=== PATIENT | female | born 1965 | race Caucasian/White ===

== ENCOUNTER 2018-06-23 18:37 | Emergency (ER) | payer MEDICAID ==
[~2018-06-23] VITALS: Ht 180.3 cm; Wt 68.0 kg
[2018-06-23 18:50] VITALS: BP 145/74
[2018-06-23] MEDS ORDERED: CEFTRIAXONE 500 MG VIAL IM ONE (19:00)
[2018-06-23] MEDS ORDERED: AZITHROMYCIN 250 MG TABLET PO ONE (19:00)
[2018-06-23] MEDS ORDERED: LIDOCAINE /MPF 1% VIAL 5 ML VIAL ONE (19:10)
[2018-06-23] MEDS ORDERED: CEFTRIAXONE 500 MG VIAL ONE (19:10)
[2018-06-23] MEDS ORDERED: AZITHROMYCIN 250 MG TABLET ONE (19:11)
[2018-06-23 19:35] LABS: APPEARANCE,URINE Cloudy (CLEAR); BILIRUBIN,URINE Negative (NEGATIVE); BLOOD, URINE Small Ery/uL (NEGATIVE); COLOR,URINE Yellow (YELLOW); KETONES,URINE Trace (NEGATIVE); LEUKOCYTE ESTERASE ,URINE Trace (NEGATIVE); NITRITE, URINE Positive (NEGATIVE); PROTEIN,URINE Negative (NEGATIVE); UGLUCOSE Negative (NEGATIVE); UROBILINOGEN,URINE 0.2 EU/dL (0.2)
[2018-06-23 19:44] LABS: BACTERIA,URINE 2+ /HPF (None Seen); SQUAMOUS EPITHELIAL CELL,UR Few /HPF (None Seen)
== END 2018-06-23 19:36 | disposition home or self-care (01) ==
LOC: ER 18:47
DX: Z20.2 Contact with and (suspected) exposure to infections with a predominantly sexual mode of transmission (principal)
CPT/HCPCS: 81001; 84703; 87077; 87086; 87186; 87491; 87591; 96372; 99283; A4606; J0696; J3490; 81000-TC

== ENCOUNTER 2022-10-15 04:20 | Emergency (ER) | payer MEDICAID, OTHER ==
[~2022-10-15] VITALS: Ht 177.8 cm; Wt 67.1 kg
--- NOTE | 2022-10-15 05:34 | NUR ---
trip and fall, hit head on wall and L shoulder. denies LOC. -blood thinners admits to ETOH
--- NOTE | 2022-10-15 05:55 | NUR ---
PT TAKEN TO CT
--- NOTE | 2022-10-15 06:06 | NUR ---
PT BACK FROM CT
[2022-10-15] MEDS ORDERED: NAPR-1192 PO (07:51)
--- NOTE | 2022-10-15 08:36 | NUR ---
Patient discharged to home in stable condition. Written and verbal after care instructions given. Patient verbalizes understanding of instruction.IV removed. Catheter intact and site benign. Pressure and 4x4 applied to site. No bleeding noted.
[2022-10-15 08:37] VITALS: BP 139/81
== END 2022-10-15 08:37 | disposition home or self-care (01) ==
LOC: ER 04:21
DX: S00.83XA Contusion of other part of head, initial encounter (principal); M25.512 Pain in left shoulder; Z79.899 Other long term (current) drug therapy; W01.0XXA Fall on same level from slipping, tripping and stumbling without subsequent striking against object, initial encounter; Y93.89 Activity, other specified; Y92.89 Other specified places as the place of occurrence of the external cause; Y99.8 Other external cause status
CPT/HCPCS: 70450-TC; 72125-TC; 73030-TC